=== PATIENT | female | born 1980 | race Caucasian/White ===

== ENCOUNTER 2024-07-07 07:39 | Emergency (ER) | payer OTHER, BC ==
[2024-07-07] MEDS: predniSONE 20 MG Tab PO ONE (08:21)
[2024-07-07] MEDS: Orphenadrine 100 MG Tab.ER PO ONE (08:22)
== END 2024-07-07 08:32 | disposition home or self-care (01) ==
LOC: LL.ED 07:39
DX: M54.50 Low back pain, unspecified (principal); F17.210 Nicotine dependence, cigarettes, uncomplicated; Z79.899 Other long term (current) drug therapy; Z90.49 Acquired absence of other specified parts of digestive tract; V49.50XA Passenger injured in collision with unspecified motor vehicles in traffic accident, initial encounter
CPT/HCPCS: 99283; A9270; J7512